=== PATIENT | male | born 1960 | race Caucasian/White ===

== ENCOUNTER → 2017-02-23 | Outpatient (CLI) | payer OTHER ==
[~2017-02-23] MED LIST: IBUPROFEN 400400 M1 PO
== END ==
LOC: CAT 07:29
DX: C91.90 Lymphoid leukemia, unspecified not having achieved remission (principal); R59.9 Enlarged lymph nodes, unspecified; R19.00 Intra-abdominal and pelvic swelling, mass and lump, unspecified site

== ENCOUNTER → 2018-12-22 | Outpatient (CLI) | payer OTHER | LOC: CAT 11:13 | DX: Z13.6 Encounter for screening for cardiovascular disorders (principal) ==

== ENCOUNTER → 2019-03-23 | Outpatient (CLI) | payer OTHER | LOC: ULTRA 15:00 | DX: M25.461 Effusion, right knee (principal) ==

== ENCOUNTER → 2021-01-06 | Outpatient (CLI) | payer OTHER ==
[2021-01-06 09:43] LABS: HEMATOCRIT 44.1 % (42.0-52.0); HEMOGLOBIN 14.2 gm/dL (14.0-18.0); MCH 30.6 pg (26.0-34.0); MCHC 32.2 g/dL (28.0-37.0); MCV 95.1 fL (80.0-100.0); RBC 4.64 mil/uL (4.50-6.00); RDW 13.3 % (10.5-14.5); WBC 14.8 thou/uL (4.0-11.0)
[2021-01-06 09:44] LABS: URINE BILIRUBIN NEGATIVE (Negative); URINE BLOOD NEGATIVE (Negative); URINE CLARITY CLEAR; URINE COLOR YELLOW; URINE GLUCOSE-RANDOM* NEGATIVE (Negative); URINE KETONES NEGATIVE (Negative); URINE LEUKOCYTES-REFLEX NEGATIVE (Negative); URINE NITRITE-REFLEX NEGATIVE (Negative); URINE PROTEIN (DIPSTICK) NEGATIVE (Negative); URINE UROBILINOGEN 0.2 E.U./dl (0.2-1.0)
[2021-01-06 09:58] LABS: ALBUMIN 4.2 g/dL (3.4-5.0); ANION GAP 6 mmol/L (7-16); BUN 17 mg/dL (7-18); CHLORIDE 103 mmol/L (98-107); CHOLESTEROL 198 mg/dL (<200); CO2 28 mmol/L (21-32); CREATININE 0.9 mg/dL (0.7-1.3); GLUCOSE 104 mg/dL (74-106); HDL CHOLESTEROL 98 mg/dL (>40); LDL CHOLESTEROL 94 mg/dL (<100); POTASSIUM 4.1 mmol/L (3.5-5.1); SGOT 33 U/L (15-37); SGPT 54 U/L (30-65); SODIUM 137 mmol/L (136-145); TOTAL BILIRUBIN 0.5 mg/dL (0.2-1.0); TOTAL PROTEIN 7.6 g/dL (6.4-8.2); TRIGLYCERIDE 32 mg/dL (<150); VLDL 6 mg/dL (<40)
[2021-01-06 11:00] LABS: ABSOLUTE NEUTROPHILS 2.4 thou/uL (1.4-8.2); ATYPICAL LYMPHS 3 %
[2021-01-06 11:01] LABS: LARGE PLATELETS RARE; PLATELET COUNT 175 thou/uL (150-400)
== END ==
LOC: LAB 09:00
PROVIDERS: ATTEND Internal Medicine Hematology & Oncology
DX: Z00.00 Encounter for general adult medical examination without abnormal findings (principal); C91.10 Chronic lymphocytic leukemia of B-cell type not having achieved remission; R94.5 Abnormal results of liver function studies